=== PATIENT | female | born 1985 | race American Indian/Alaskan Native ===

== ENCOUNTER 2017-11-14 07:17 | Inpatient (IN) | payer MEDICAID, OTHER ==
[2017-11-14 07:36] VITALS: BMI 34.0
[2017-11-14] MEDS ORDERED: Lactated Ringer's 1,000 ML IV ONE (07:38)
[2017-11-14 09:16] LABS: BASO # 0.1 K/uL (0.0-0.2); BASO % 0.6 % (0.0-2.0); EOS # 0.1 K/uL (0.0-0.7); HEMOGLOBIN 9.6 g/dL (12.0-16.0); LYMPH # 2.6 K/uL (1.0-4.3); LYMPH % 27.3 % (20.0-40.0); MEAN CELL VOLUME 78.7 fl (81.0-99.0); MEAN CORPUSCULAR HEMOGLOBIN 24.8 pg (27.0-31.0); MEAN CORPUSCULAR HGB CONC 31.6 g/dL (33.0-37.0); MONO # 0.7 K/uL (0.0-0.8); MONO % 7.7 % (0.0-10.0); NEUT % 63.4 % (50.0-75.0); RBC 3.86 Mil/uL (3.80-5.20); RED CELL DISTRIBUTION WIDTH 19.3 % (11.5-14.5); WHITE BLOOD COUNT 9.4 K/uL (4.8-10.8)
[2017-11-14] MEDS: Lactated Ringer's 1,000 ML IV SCH ×2 (09:45→20:54)
[2017-11-14] MEDS ORDERED: Oxytocin 30 units/LR 500ML 30 UNITS/500 ML BAG IV ONE (10:00)
[2017-11-14] MEDS ORDERED: Fentanyl/Bupivacaine HCl 250 ML EPI ONE (15:08)
--- NOTE | 2017-11-15 02:02 | OBADHP ---
Datetime: 11/15/2017 01:51 Admit Comment, IP Provider: term previou pph admitted for induction uneventful co urse Pelvic Type - PN: Adequate Extremities - PN: Normal Abdomen - PN: Normal Back - PN: Normal Breast - PN: Normal Lungs - PN: Normal Heart - PN: Normal Thyroid - PN: Normal Neurologic - PN: Normal HEENT - PN: Normal General - PN: Normal Presentation-Admit: Vertex FHR - Baseline A Provider: 140 Contraction Comments Provider: 4-5min Gestation - Est Wks by US: 40+ Vital Signs Provider: Reviewed; Within Normal Limits IP Chief Complaint: Uterine contractions NICHD Variability Prov Fetus A: Moderate 6-25bpm NICHD Accel Fetus A IP Provider: 10X10 FHR Category Provider Fetus A: Category I NICHD Decel Fetus A IP Provider: None Dilatation, Provider: 3-2 Effacement, Provider: 80% Station, Provider: -2 Genitourinary Exam: Normal DTRs - PN: Normal EGA AdmitDate IP: 40.1 IP Adm Impression: Term, intrauterine IP Admit Plan: Admit to unit; Initiate labor induction protocol
--- NOTE | 2017-11-15 02:07 | OBDS ---
MATERNAL INFORMATION Estimated Blood Loss (ml): 400ml Maternal Complications: None LABOR SUMMARY EDC: 11/14/2017 00:00 No. Babies in Womb: 1 LABOR INFORMATION Reason for Induction: Other Onset of Labor: 11/14/2017 15:00 Oxytocin: Augmentation Group B Beta Strep: Negative Antibiotics # of Doses: na Antibiotics Time of Last Dose: na Steroids Given: None Reason Steroids Not Administered: Not Applicable MEMBRANES Membranes Rupture Method: Artificial Rupture of Membranes: 11/14/2017 08:35 Amniotic Fluid Color: Clear Amniotic Fluid Amount: Small Amniotic Fluid Odor: Normal VAGINAL DELIVERY Episiotomy: None Laceration Extension: First Degree Laceration Type: Perineal Laceration Repair Note: repair of first degree laceration with 2-0 Count Comment: correct INFORMATION BABY A Gestational Age at Delivery: 40.0 Gestational Status: Term IDENTIFICATION/MEDS BABY A ID Band Number: [id number]
[2017-11-15] MEDS ORDERED: Oxycodone/Acetaminophen 5/325 mg Tab PO PRN (02:16)
[2017-11-15] MEDS ORDERED: Benzocaine/Menthol SPRAY TOP PRN (02:16)
[2017-11-15] MEDS ORDERED: Acetaminophen-Codeine 300/30 mg Tab PO PRN (02:16)
[2017-11-15 03:27] LABS: HEMOGLOBIN 8.4 g/dL (12.0-16.0); MEAN CELL VOLUME 76.9 fl (81.0-99.0); MEAN CORPUSCULAR HEMOGLOBIN 25.1 pg (27.0-31.0); MEAN CORPUSCULAR HGB CONC 32.6 g/dL (33.0-37.0); RBC 3.35 Mil/uL (3.80-5.20); WHITE BLOOD COUNT 17.2 K/uL (4.8-10.8)
[2017-11-15] MEDS ORDERED: FERROUS FUMARATE 324 MG PO SCH (09:00)
[2017-11-15] MEDS: Oxycodone/Acetaminophen 5/325 mg Tab PO PRN ×2 (13:35→19:49)
[2017-11-16 11:44] LABS: BASO # 0.1 K/uL (0.0-0.2); BASO % 0.6 % (0.0-2.0); EOS # 0.1 K/uL (0.0-0.7); EOS % 1.1 % (0.0-4.0); LYMPH # 2.4 K/uL (1.0-4.3); LYMPH % 18.5 % (20.0-40.0); MEAN CELL VOLUME 77.6 fl (81.0-99.0); MEAN CORPUSCULAR HEMOGLOBIN 24.7 pg (27.0-31.0); MEAN CORPUSCULAR HGB CONC 31.8 g/dL (33.0-37.0); MEAN PLATELET VOLUME 9.6 fl (7.2-11.7); MONO # 0.9 K/uL (0.0-0.8); MONO % 6.8 % (0.0-10.0); NEUT # 9.3 K/uL (1.8-7.0); RBC 2.6 Mil/uL (3.80-5.20); RED CELL DISTRIBUTION WIDTH 19.3 % (11.5-14.5); WHITE BLOOD COUNT 12.8 K/uL (4.8-10.8)
[2017-11-16 11:56] LABS: HEMOGLOBIN 6.4 g/dL (12.0-16.0)
--- NOTE | 2017-11-16 14:31 | OBPPN ---
Datetime: 11/16/2017 14:24 PP Pain Prov comment: no SOB chest or leg pains PP Nausea Prov: Denies PP Flatus Prov: Yes PP Nausea Prov comment: denies dizziness or weakness PP Breasts Prov: Normal PP Lungs Prov: Normal PP Abdomen/Uterus Prov: Abnormal PP CVA Tenderness Prov: Normal PP Extremities Prov: Normal PP C/S Incision Prov: Not Applicable PP Progress Prov: Normal PP Comments Phys Exam Prov: breast not engorged NT, Abd soft ND fundus firm below the umb NT, Ext no edema or calf tenderness PP Impression Prov: Normal progression PP Plan Prov: Continue present management PP Impression Other Prov: anemia- asymptomatic PP Progress Note Prov: discussed with pt about anemia and offered her blood transfussion benefits vs risks of this discussed but pt respectfully declined it and wlll continue iron pills Continue PP car e and OOB and ambulation IP PP Procedures: None Vital Signs Provider PP: Reviewed
[2017-11-16 15:39] VITALS: RESP 20
--- NOTE | 2017-11-17 08:19 | OBPPN ---
Datetime: 11/17/2017 08:15 PP Pain Prov: Within normal limits PP Nausea Prov: Denies PP Flatus Prov: Yes PP BM Prov: Yes PP Breasts Prov: Normal PP Heart Prov: Normal PP Lungs Prov: Normal PP Abdomen/Uterus Prov: Normal PP Lochia Prov: Normal PP Vulva/Perineum Prov: Normal PP CVA Tenderness Prov: Normal PP Extremities Prov: Normal PP Impression Prov: Normal progression PP Plan Prov: Continue present management PP Progress Note Prov: stable ppd 2 continue present care IP PP Procedures: None Vital Signs Provider PP: Reviewed; Within Normal Limits
--- NOTE | 2017-11-17 08:21 | OBDCSUM ---
Datetime: 11/17/2017 08:17 Discharged to, Provider: Home Follow up at, Provider: Disch Instr Diet: Regular Discharge Instructions, Provider: Specific instructions as noted Discharge Diagnosis, Provider: Term Delivered Follow up in weeks, Provider: 5-6weeks in office Disch Referrals: None Discharge Comment, Provider: charline home today rto 5-6weeks call office if any problems
[2017-11-17 21:06] VITALS: BP 111/70; PULSE 91; TEMP 98.3; O2SAT 99
== END 2017-11-17 11:55 | disposition home or self-care (01) | DRG 775 ==
LOC: H.L&D 07:38 → H.OB/GYN 11-15 05:30
PROVIDERS: ADMIT Specialist; ATTEND Specialist
PROC: 10E0XZZ Delivery of Products of Conception, External Approach (ICD-10-PCS; principal; 2017-11-14)
PROC: 0HQ9XZZ Repair Perineum Skin, External Approach (ICD-10-PCS; 2017-11-14)
PROC: 4A1HXCZ Monitoring of Products of Conception, Cardiac Rate, External Approach (ICD-10-PCS; 2017-11-14)
DX: O69.81X0 Labor and delivery complicated by cord around neck, without compression, not applicable or unspecified (principal); O70.0 First degree perineal laceration during delivery; Z37.0 Single live birth; Z3A.40 40 weeks gestation of pregnancy; O36.63X0 Maternal care for excessive fetal growth, third trimester, not applicable or unspecified; O48.0 Post-term pregnancy